=== PATIENT | male | born 1995 | race Caucasian/White ===

== ENCOUNTER 2017-08-10 12:29 | Emergency (ER) | payer OTHER ==
[~2017-08-10] VITALS: Ht 157.5 cm; Wt 51.4 kg
[2017-08-10 12:37] VITALS: Ht 157.5 cm; Wt 51.4 kg
[2017-08-10] MEDS ORDERED: DIPHTH/TET/ACEL PERTUSS (ADULT) 0.5 ML VIAL IM* ONE (14:30)
--- NOTE | 2017-08-10 14:51 | RADRPT ---
PROCEDURE: CT Brain without. CLINICAL INDICATION: Head injury, pain. TECHNIQUE: A CT of the brain was performed on multidetector high-resolution CT scanner utilizing a xial sections from the skull base through the vertex without contrast. The scan was reviewed in sof t tissue brain and high frequency resolution bone algorithm windows. Images were reviewed on a high -resolution PACS workstation. One or more the following does reduction techniques were utilized: Aut omated exposure control, adjustment of the mA/ or kV according to patient's size, or use of iterativ e reconstruction technique. The exam CTDI = 44.93 mGy and the DLP = 630.2 mGy-cm. DICOM images are available. COMPARISON: None available. FINDINGS: The ventricles and sulci are age-appropriate. There is no intracranial hemorrhage, mass effect or mi dline shift. No abnormal intra-axial or extra-axial fluid collections are seen. The maciel/white george er differentiation is preserved. No acute skull abnormality is noted. The visualized paranasal sinus es are essentially clear. IMPRESSION: 1. No acute intracranial hemorrhage, transcortical infarction or mass effect. RPTAT: UU .Jodi Cervantes MD, MD Date Time Electronically viewed and signed by .Jodi Cervantes MD, MD on 08/10/2017 14:51 .N/
--- NOTE | 2017-08-10 14:52 | RADRPT ---
PROCEDURE: XR Lumbar Spine. CLINICAL INDICATION: Low back pain. TECHNIQUE: Three views of the lumbar spine are available for review COMPARISON: None available FINDINGS: There is straightening of normal lumbar lordosis. Alignment is intact. No acute fracture or disloc ation is seen. The vertebral body heights and disc spaces are preserved. IMPRESSION: 1. No acute fracture or dislocation. 2. Straightening of the normal lumbar lordosis. RPTAT: HH .Jodi Cervantes MD, Date Time Electronically viewed and signed by .Jodi Cervantes MD, on 08/10/2017 14:52 .N/
--- NOTE | 2017-08-10 14:54 | RADRPT ---
PROCEDURE: CT cervical spine without contrast CLINICAL INDICATION: Trauma. Neck pain. TECHNIQUE: CT scan of the cervical spine was performed [facility] No IV contrast was administered. Coronal and sagittal reformatted images were obtained from th e axial source images. Images were reviewed on a high-resolution PACS workstation. One or more the f ollowing does reduction techniques were utilized: Automated exposure control, adjustment of the mA/ or kV according to patient's size, or use of iterative reconstruction technique. Exam CTDI = 22.07 m Gy and the DLP = 406.69 mGy-cm. DICOM images are available. COMPARISON: None available. FINDINGS: There is straightening of the alignment of the cervical spine with loss of the normal cervical lordo sis. Alignment remains intact. No acute fracture or dislocation is seen. The vertebral body heigh ts and disk spaces are preserved. No significant spinal canal or foraminal stenosis is noted. No ma ss, hematoma, or other soft tissue abnormality is seen. IMPRESSION: 1. Straightening of normal cervical lordosis. 2. No acute fracture or traumatic subluxation. RPTAT: UU .Jodi Cervantes MD, MD Date Time Electronically viewed and signed by .Jodi Cervantes MD, MD on 08/10/2017 14:54 .N/
--- NOTE | 2017-08-10 15:09 | RADRPT ---
PROCEDURE: CT scan facial bones CLINICAL INDICATION: Trauma. Facial injury. Pain. TECHNIQUE: CT scan of the face was performed on the a high-resolution multidetector CT scanner wit h multiple contiguous axial images obtained through the face. Coronal and sagittal reformatted imag es were obtained from the axial source images. One or more the following does reduction techniques w ere utilized: Automated exposure control, adjustment of the mA/ or kV according to patient's size, o r use of iterative reconstruction technique. Exam CTDI = 44.93 mGy and the DLP = 630.2 mGy-cm. DICOM images are available. COMPARISON: None available. FINDINGS: No acute fracture or dislocation is seen. No significant soft tissue swelling is noted. The orbita l globes are unremarkable. Nasal septum is intact. Paranasal sinuses demonstrate trace scattered mu cosal thickening mainly in left maxillary sinus. Right nasal septal deviation with a rightward projecting osseous spur abuts the inferior turbinate a nd may contribute to air flow restriction through the right nasal fossa. IMPRESSION: 1. No acute facial fracture or dislocation. RPTAT: UU .Jodi Cervantes MD, MD Date Time Electronically viewed and signed by .Jodi Cervantes MD, MD on 08/10/2017 15:09 .N/
[2017-08-10] MEDS ORDERED: LIDOCAINE 1% (MDV) 20 ML INJ SC ONE (15:30)
[2017-08-10] MEDS ORDERED: CEPH-443 PO (15:55)
[2017-08-10] MEDS ORDERED: BACI28.34 TOP (15:55)
[2017-08-10] MEDS ORDERED: ACET500C5 PO (15:55)
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
== END 2017-08-10 16:09 | disposition home or self-care (01) ==
LOC: FTE 12:29
DX: S01.511A Laceration without foreign body of lip, initial encounter (principal); Y04.0XXA Assault by unarmed brawl or fight, initial encounter; Z23 Encounter for immunization
CPT/HCPCS: 40650; 70450; 70486; 72100; 72125; 90471; Z7502; Z7610